=== PATIENT | male | born 1990 | race Caucasian/White ===

== ENCOUNTER 2024-06-04 09:00 | Outpatient (RCR) | payer OTHER, SELFPAY ==
--- NOTE | 2024-04-19 15:30 | PT.OIE ---
Current Diagnoses Stiffness of right shoulder, not elsewhere classified (04/19/24) Cervicalgia (04/19/24) Other specified acquired deformities of musculoskeletal system (04/19/24) Weakness (04/19/24) Visit Care Team Role Provider Type Prince Vignesh MD Family Provider Non-Staff Primary Care Provider Specialty: Family Practice Address: [address] [place] [address], [id number] Email: Ruel Fernandez MD Attending Provider Non-Staff Referring Provider Specialty: Psychiatry Address: [address] [place] [address], [address], [place], [address] Email: Physical Therapy Initial Evaluation PT-OP-A Visit Information Start: 04/19/24 07:29 Freq: Status: Active Protocol: Document 04/19/24 08:17 NM (Rec: 04/19/24 09:04 NM [id number]) Out-Patient Physical Therapy Visit Information Visit Information Visit Type Initial Evaluation Visit Start Time 08:18 Visit Stop Time 09:00 Visit Number 1 Evaluation Information Evaluation Date 04/19/24 PT-OP-B Current Condition Start: 04/19/24 07:29 Freq: Status: Active Protocol: Document 04/19/24 08:17 NM (Rec: 04/19/24 09:04 NM [id number]) Current Condition History of Current Condition Onset Date 1 year ago Current Complaints scapular winging History of Current Condition Pt reports that 1 year ago, he reports that numbness in R shoulder/scapula. He thinks that it occurred after sleeping weird, after multiple days of changing sleep position without success . About 1 month later, lost mobility in thumb; currently in PT for gripping/thumb stregth. Several months later, had same on L side; same 1 month later. Has seen neurologist at [facility] in [facility]. Four months ago, pt reports that he lost the ability to keep his scapula with forward reaching or overhead. No neck pain, no numbness. L sided is completely resolved. No clicking, popping of scapula. Reports uncomfortable, states with or without weights. Not affecting sleep. 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 still physically active - doing pilates, yoga, lower body (15#) Baseline Function- Recreation/Hobbies hiking, biking PT-OP-C Subjective Start: 04/19/24 07:29 Freq: Status: Active Protocol: Document 04/19/24 08:17 NM (Rec: 04/19/24 09:04 NM [id number]) OP-PT Subjective Patient Comments Patient Comments Pt consents to participate in evaluation Patient Questionnaires Quick Dash- Upper Extremity Quick Dash UE Score 22.7% impairment OP-PT Pain Assessment Location R scapula Pain Location Details scapula, under scapula Intensity 4 Scale Used Numeric (0 - 10) Description Aching Frequency Frequent Pain Aggravating Factors Activity,Exercise,Lifting Other Pain Aggravating Factors lifting, reaching, driving Pain Alleviating Factors None,Massage Other Pain Alleviating Factors pec mobilizations PT-OP-E Functional Tests Start: 04/19/24 07:29 Freq: Status: Active Protocol: Document 04/19/24 08:17 NM (Rec: 04/19/24 09:04 NM [id number]) Functional Tests Apley's Scratch Test Action 1- Left scap spine Action 1- Right AC J Action 2- Left T6 Action 2- Right occiput Action 3- Left T7 Action 3- Right T10 PT-OP-F Manual Assessment Start: 04/19/24 07:29 Freq: Status: Active Protocol: Document 04/19/24 08:17 NM (Rec: 04/19/24 09:04 NM [id number]) Manual Assessments Soft Tissue Assessment Soft Tissue Mobility Assessment Hypertrophy and elevation of R trap and cervical paraspinals . No atrophy noted at rotator cuff. Lat tightnes Joint Mobility Assessment Joint Mobility Assessment Quicker scapulohumeral rhythm R > L, limited thoracic mobility marnie R side, rib elevation marnie 1st rib. Limited posterior and inferior R GH joint mobility R scapula- 9 cm medial border to spine, 12 cm inf to spine L scapula - 8 cm medial border to spine, 9 cm inf to spine PT-OP-G Mobility & Gait Start: 04/19/24 07:29 Freq: Status: Active Protocol: Document 04/19/24 08:17 NM (Rec: 04/19/24 10:57 NM [id number]) OP Gait Assessment Gait Gait Assistance Required: Independent Distance (Feet) 150 Comments Gait Comments Limited trunk rotation PT-OP-H Neuro Start: 04/19/24 07:29 Freq: Status: Active Protocol: Document 04/19/24 08:17 NM (Rec: 04/19/24 10:57 NM [id number]) Sensation Evaluation Comments Summary Comments BUE equally intact to light touch sensation V1-V3 intact equally to light touch sensation Deep Tendon Reflex & Clonus Assessment Deep Tendon Reflex Right Achilles Deep Tendon Reflex 1+ Diminished Left Achilles Deep Tendon Reflex 2+ Normal Bilateral Patellar Deep Tendon Reflex 1+ Diminished Bilateral Brachioradialis Deep Tendon Reflex 1+ Diminished Bilateral Tricep Deep Tendon Reflex 1+ Diminished Bilateral Bicep Deep Tendon Reflex 1+ Diminished PT-OP-J Posture/Palpation/Skin Start: 04/19/24 07:29 Freq: Status: Active Protocol: Document 04/19/24 08:17 NM (Rec: 04/19/24 10:57 NM [id number]) Posture Evaluation Position Standing Head/C-Spine Posture C-Spine Flattened L-Spine Posture Increased Lordosis Shoulder Posture (L) Rounded,(R) Rounded Scapula Posture (L) Neutral,(R) Elevated,(R) Winged,(R) Tipped Arm Posture (L) Internally Rotated,(R) Internally Rotated Pelvis Posture Anteriorly Tilted Weight Distribution Balanced Hip Posture (R) Internally Rotated Palpation Assessment Location R shoulder Palpation Findings Soft Tissue Tightness, Tenderness Palpation Details Increased soft tissue restrictions on R cervical spine and periscapulars. R shoulder/scapula elevation, upper trap more prominent. Increaed tone No tenderness to palpation along R scapula, rotator cuff, trapezius Winging evident PT-OP-K Range of Motion Start: 04/19/24 07:29 Freq: Status: Active Protocol: Document 04/19/24 08:17 NM (Rec: 04/19/24 09:04 NM [id number]) Cervical Spine Range of Motion Cervical Spine Active Degrees Flexion 40 Extension 60 Rotation Left 75 Rotation Right 82 Lateral Flexion Left 45 Lateral Flexion Right 50 Comments Demos slight R tilt in neutral Shoulder Goniometric Range of Motion Shoulder Right Flexion 140 Abduction 150 External Rotation at 90 degrees 40 Abduction Comments 90 ER w comp at trunk Left Flexion 170 Abduction 180 External Rotation at 90 degrees 90 Abduction PT-OP-L Special Tests Start: 04/19/24 07:29 Freq: Status: Active Protocol: Document 04/19/24 08:17 NM (Rec: 04/19/24 09:04 NM [id number]) Special Tests Cervical Spine Special Tests Distraction Test Results - Spurling's Test Test Results - Shoulder Special Tests Lift off Test Results - Comments uncomfortable based on scapular angle Empty Can Test Results + Comments weakness but not pain IR > ER PT-OP-M Strength Start: 04/19/24 07:29 Freq: Status: Active Protocol: Document 04/19/24 08:17 NM (Rec: 04/19/24 09:04 NM [id number]) Scapula Strength Scapula Manual Muscle Testing Right Elevation (C4) 4- Good- Adduction 3+ Fair+ Abduction 3+ Fair+ Depression 3+ Fair+ Comments lower trap most limited Left Elevation (C4) 4 Good Adduction 4 Good Abduction 4 Good Depression 4 Good Shoulder Strength Shoulder Manual Muscle Testing Right Flexion 4- Good- Abduction (C5) 4 Good External Rotation 4- Good- Internal Rotation 4- Good- Left Flexion 4 Good Abduction (C5) 4 Good External Rotation 4 Good Internal Rotation 4 Good Elbow/Forearm Strength Elbow and Forearm Manual Muscle Testing Right Flexion (C6) 4- Good- Extension (C7) 4- Good- Pronation 4 Good Supination 4 Good Left Flexion (C6) 4 Good Extension (C7) 4 Good Pronation 4 Good Supination 4 Good Wrist Strength Wrist Manual Muscle Testing Right Flexion (C7) 4- Good- Extension (C6) 4- Good- Left Flexion (C7) 4 Good Extension (C6) 4 Good Hand Legal Support Analyst/Pinch Strength Hand Dominance Hand Dominance Left Hand Strength Right Legal Support Analyst (lbs) 100 Left Legal Support Analyst (lbs) 92 PT-OP-Q Treatments Start: 04/19/24 07:29 Freq: Status: Active Protocol: Document 04/19/24 08:17 NM (Rec: 04/19/24 10:57 NM [id number]) Therapeutic Exercises Standing Exercises wall slides Standing Exercise Name with scapular protraction Side bilateral Resistance level 2 band at forearms Reps/Minutes 5 Comments cued form; too many compensations, d/c for now scapular taps Standing Exercise Name with protraction; arms extended, plank position Side bilateral Equipment Used on wall Reps/Minutes 15 ea w/ 3 hold Comments cued form, set up; demos winging scapular push up Side bilateral Equipment Used on wall Reps/Minutes 15 w/ 3 hold Comments cued form; demmontana winging PT-OP-T Assessment and Plan Start: 04/19/24 07:29 Freq: Status: Active Protocol: Document 04/19/24 08:17 NM (Rec: 04/19/24 09:04 NM [id number]) Physical Therapy Assessment Rehab Potential Rehabilitation Potential Good Evaluation Complexity Number of Personal Factors/Comorbidities 0 Number of Body Systems Impaired 1-2 Clinical Presentation at Evaluation Stable Impairments Impairments Activity Tolerance,Functional Activities,Functional Mobility ,Gait,Integument,Pain,Posture, ROM,Sensation,Soft Tissue Mobility,Strength,Transfers Other Concerns Age Related Concerns PMH: no significant PMH except provided in subjective ( referring physician's note: AIN, neuritis). 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 Goals Four Impairment quickdash 22.7% impairment Restaurant Kitchen And Service Manager Goal (LTG) Pt will decrease quickdash to <15% impairment in order to demonstrate improved symptom management LTG Duration 12 weeks Three Impairment limitations in scapular, shoulder strength Short Term Goal (STG) Pt will improve R scapular strength to at least 4-/5 MMT globally for more efficient scapular position STG Duration 8 weeks Shelter Goal (LTG) Pt will improve R scapular and shoulder strength to at least 4/5 MMT globally for more efficient lifting mechanics LTG Duration 12 weeks Two Impairment R shoulder ROM limited Shelter Goal (LTG) Pt will increase R shoulder flexion ROM to at least 160 deg and apley ER to at least C3 in order to improve ability to reach and perform grooming ADLs LTG Duration 12 weeks One Impairment not performing HEP Restaurant Kitchen And Service Manager Goal (LTG) Pt will be IND with HEP at least 3x/wk in order to maximize progression with PT and for maintenance upon discharge from PT LTG Duration 12 weeks Assessment Summary Assessment Pt is a 34 y.o. presenting with R scapular winging beginning 4 months ago. Pt has had significant changes in sensation and strength in BUE proximally to distally, beginning over the past year with changes every few months; he has been assessed by a neurologist with dx still ongoing. Pt demonstrates decreased thoracic mobility, R scapular movement, and R shoulder ROM; mild limitations in cervical spine AROM, likely more soft tissue related. Pt exhibits hypertrophy of R cervical paraspinals and periscapulars, atrophy of serratus anterior. Pt also demonstrates weakness in BUE, R>L, especially with shoulder flex, ER/IR, and elbow. His light touch sensation is intact, reflexes are diminished. PT educated pt on exam findings and plan of care. Pt would benefit from skilled PT for R scapular mobility and strengthening in order for pt to be able to perform reaching and lifting ADLs, in addition to work- related tasks. Physical Therapy Plan Frequency and Duration Frequency of Treatment 1-2x/wk Duration of treatment (weeks) 12 Plan of Care Start Date 04/19/24 Plan of Care End Date 07/13/24 Therapeutic Interventions Therapeutic Interventions Gait Training,Home Exercise Program,Joint Mobilizations, Manual Therapy,Neuromuscular Re-education,Orthotic/ Prosthetic Management,Patient/ Caregiver Education,Self-Care/ Home Management,Sensory Integration,Soft Tissue Mobilization,Taping, Therapeutic Activities, Therapeutic Exercises Modalities Cold Pack/Ice Massage,Electric Stimulation,Hot Packs, Ultrasound Next Visit Focus/Plan Next Note Type Treatment Note Next Visit Plan scapular mobility RTC strengthening- closed chain, scapular strength, thoracic mobility scapular mobilizations, GHJ and rib mobilizations, STM
--- NOTE | 2024-04-19 15:30 | PT.OPPOC ---
Physical, Occupational & Speech Therapy At [facility] Current Diagnoses Stiffness of right shoulder, not elsewhere classified (04/19/24) Cervicalgia (04/19/24) Other specified acquired deformities of musculoskeletal system (04/19/24) Weakness (04/19/24) Visit Care Team Role Provider Type Prince Vignesh MD Family Provider Non-Staff Primary Care Provider Specialty: Family Practice Address: [address] [place] [address], [id number] Email: Ruel Fernandez MD Attending Provider Non-Staff Referring Provider Specialty: Psychiatry Address: [address] [place] [address], [address], [place], [address] Email: Plan Of Care PT-OP-B Current Condition Start: 04/19/24 07:29 Freq: Status: Active Protocol: Document 04/19/24 08:17 NM (Rec: 04/19/24 09:04 NM [id number]) Current Condition History of Current Condition Onset Date 1 year ago Current Complaints scapular winging History of Current Condition Pt reports that 1 year ago, he reports that numbness in R shoulder/scapula. He thinks that it occurred after sleeping weird, after multiple days of changing sleep position without success . About 1 month later, lost mobility in thumb; currently in PT for gripping/thumb stregth. Several months later, had same on L side; same 1 month later. Has seen neurologist at [facility] in [facility]. Four months ago, pt reports that he lost the ability to keep his scapula with forward reaching or overhead. No neck pain, no numbness. L sided is completely resolved. No clicking, popping of scapula. Reports uncomfortable, states with or without weights. Not affecting sleep. 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 still physically active - doing pilates, yoga, lower body (15#) Baseline Function- Recreation/Hobbies hiking, biking PT-OP-T Assessment and Plan Start: 04/19/24 07:29 Freq: Status: Active Protocol: Document 04/19/24 08:17 NM (Rec: 04/19/24 09:04 NM [id number]) Physical Therapy Assessment Rehab Potential Rehabilitation Potential Good Evaluation Complexity Number of Personal Factors/Comorbidities 0 Number of Body Systems Impaired 1-2 Clinical Presentation at Evaluation Stable Impairments Impairments Activity Tolerance,Functional Activities,Functional Mobility ,Gait,Integument,Pain,Posture, ROM,Sensation,Soft Tissue Mobility,Strength,Transfers Other Concerns Age Related Concerns PMH: no significant PMH except provided in subjective ( referring physician's note: AIN, neuritis). 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 Goals Four Impairment quickdash 22.7% impairment Clerk Rating Goal (LTG) Pt will decrease quickdash to <15% impairment in order to demonstrate improved symptom management LTG Duration 12 weeks Three Impairment limitations in scapular, shoulder strength Short Term Goal (STG) Pt will improve R scapular strength to at least 4-/5 MMT globally for more efficient scapular position STG Duration 8 weeks Clerk Rating Goal (LTG) Pt will improve R scapular and shoulder strength to at least 4/5 MMT globally for more efficient lifting mechanics LTG Duration 12 weeks Two Impairment R shoulder ROM limited Residential Goal (LTG) Pt will increase R shoulder flexion ROM to at least 160 deg and apley ER to at least C3 in order to improve ability to reach and perform grooming ADLs LTG Duration 12 weeks One Impairment not performing HEP Clerk Rating Goal (LTG) Pt will be IND with HEP at least 3x/wk in order to maximize progression with PT and for maintenance upon discharge from PT LTG Duration 12 weeks Assessment Summary Assessment Pt is a 34 y.o. presenting with R scapular winging beginning 4 months ago. Pt has had significant changes in sensation and strength in BUE proximally to distally, beginning over the past year with changes every few months; he has been assessed by a neurologist with dx still ongoing. Pt demonstrates decreased thoracic mobility, R scapular movement, and R shoulder ROM; mild limitations in cervical spine AROM, likely more soft tissue related. Pt exhibits hypertrophy of R cervical paraspinals and periscapulars, atrophy of serratus anterior. Pt also demonstrates weakness in BUE, R>L, especially with shoulder flex, ER/IR, and elbow. His light touch sensation is intact, reflexes are diminished. PT educated pt on exam findings and plan of care. Pt would benefit from skilled PT for R scapular mobility and strengthening in order for pt to be able to perform reaching and lifting ADLs, in addition to work- related tasks. Physical Therapy Plan Frequency and Duration Frequency of Treatment 1-2x/wk Duration of treatment (weeks) 12 Plan of Care Start Date 04/19/24 Plan of Care End Date 07/13/24 Therapeutic Interventions Therapeutic Interventions Gait Training,Home Exercise Program,Joint Mobilizations, Manual Therapy,Neuromuscular Re-education,Orthotic/ Prosthetic Management,Patient/ Caregiver Education,Self-Care/ Home Management,Sensory Integration,Soft Tissue Mobilization,Taping, Therapeutic Activities, Therapeutic Exercises Modalities Cold Pack/Ice Massage,Electric Stimulation,Hot Packs, Ultrasound Next Visit Focus/Plan Next Note Type Treatment Note Next Visit Plan scapular mobility RTC strengthening- closed chain, scapular strength, thoracic mobility scapular mobilizations, GHJ and rib mobilizations, STM Plan of Care Dates Plan of Care Start Date 04/19/24 Plan of Care End Date 07/13/24 Electronically Signed by: Mary Jo Caban, PT 04/19/24 [id number] If you are in agreement with this Plan of Care, please return a signed and dated copy. I have reviewed this Plan of Care and certify that the skilled therapy services above are required to meet the patient?s needs. Physician Signature Date Printed Name and Credentials Clinical Instructor Signature Printed Name and Credentials
--- NOTE | 2024-04-19 15:32 | PT-OP ANOTE ---
PT called and left message for pt to bring OT hand therapy schedule when attends next PT appt as pt cannot attend both PT and OT on same days due to insurance policies. Reminded pt of upcoming appt on 04/23
--- NOTE | 2024-04-23 10:01 | PT-OP ANOTE ---
NO SHOW- PT called and left pt a voicemail at [phone] as pt confirmed appt but did not show up for scheduled appt on 04/23 at 0945. PT reminded pt of attendance policy, informing pt that he will be discharged if he has a 2nd no show. PT also reminded pt of upcoming appt on 04/26 with [facility] at 1430.
--- NOTE | 2024-04-26 17:12 | PT.OTN ---
Current Diagnoses Stiffness of right shoulder, not elsewhere classified (04/26/24) Cervicalgia (04/26/24) Other specified acquired deformities of musculoskeletal system (04/26/24) Weakness (04/26/24) Physical Therapy Treatment Note PT-OP-A Visit Information Start: 04/19/24 07:29 Freq: Status: Active Protocol: Document 04/26/24 14:38 SW (Rec: 04/26/24 15:21 SW [id number]) Out-Patient Physical Therapy Visit Information Visit Information Visit Type Treatment Note Visit Start Time 14:35 Visit Stop Time 15:13 Visit Number 2 Number of ASSOCIATE PROFESSOR COMPUTER SCIENCE Visits 1 PT-OP-B Current Condition Start: 04/19/24 07:29 Freq: Status: Active Protocol: Document 04/19/24 08:17 NM (Rec: 04/19/24 09:04 NM [id number]) Current Condition History of Current Condition Onset Date 1 year ago Current Complaints scapular winging History of Current Condition Pt reports that 1 year ago, he reports that numbness in R shoulder/scapula. He thinks that it occurred after sleeping weird, after multiple days of changing sleep position without success . About 1 month later, lost mobility in thumb; currently in PT for gripping/thumb stregth. Several months later, had same on L side; same 1 month later. Has seen neurologist at [facility] in [facility]. Four months ago, pt reports that he lost the ability to keep his scapula with forward reaching or overhead. No neck pain, no numbness. L sided is completely resolved. No clicking, popping of scapula. Reports uncomfortable, states with or without weights. Not affecting sleep. 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 PT-OP-E Functional Tests Start: 04/19/24 07:29 Freq: Status: Active Protocol: Document 04/19/24 08:17 NM (Rec: 04/19/24 09:04 NM [id number]) Functional Tests Apley's Scratch Test Action 1- Left scap spine Action 1- Right AC J Action 2- Left T6 Action 2- Right occiput Action 3- Left T7 Action 3- Right T10 PT-OP-F Manual Assessment Start: 04/19/24 07:29 Freq: Status: Active Protocol: Document 04/19/24 08:17 NM (Rec: 04/19/24 09:04 NM [id number]) Manual Assessments Soft Tissue Assessment Soft Tissue Mobility Assessment Hypertrophy and elevation of R trap and cervical paraspinals . No atrophy noted at rotator cuff. Lat tightnes Joint Mobility Assessment Joint Mobility Assessment Quicker scapulohumeral rhythm R > L, limited thoracic mobility marnie R side, rib elevation marnie 1st rib. Limited posterior and inferior R GH joint mobility R scapula- 9 cm medial border to spine, 12 cm inf to spine L scapula - 8 cm medial border to spine, 9 cm inf to spine PT-OP-G Mobility & Gait Start: 04/19/24 07:29 Freq: Status: Active Protocol: Document 04/19/24 08:17 NM (Rec: 04/19/24 10:57 NM [id number]) OP Gait Assessment Gait Gait Assistance Required: Independent Distance (Feet) 150 Comments Gait Comments Limited trunk rotation PT-OP-H Neuro Start: 04/19/24 07:29 Freq: Status: Active Protocol: Document 04/19/24 08:17 NM (Rec: 04/19/24 10:57 NM [id number]) Sensation Evaluation Comments Summary Comments BUE equally intact to light touch sensation V1-V3 intact equally to light touch sensation Deep Tendon Reflex & Clonus Assessment Deep Tendon Reflex Right Achilles Deep Tendon Reflex 1+ Diminished Left Achilles Deep Tendon Reflex 2+ Normal Bilateral Patellar Deep Tendon Reflex 1+ Diminished Bilateral Brachioradialis Deep Tendon Reflex 1+ Diminished Bilateral Tricep Deep Tendon Reflex 1+ Diminished Bilateral Bicep Deep Tendon Reflex 1+ Diminished PT-OP-J Posture/Palpation/Skin Start: 04/19/24 07:29 Freq: Status: Active Protocol: Document 04/19/24 08:17 NM (Rec: 04/19/24 10:57 NM [id number]) Posture Evaluation Position Standing Head/C-Spine Posture C-Spine Flattened L-Spine Posture Increased Lordosis Shoulder Posture (L) Rounded,(R) Rounded Scapula Posture (L) Neutral,(R) Elevated,(R) Winged,(R) Tipped Arm Posture (L) Internally Rotated,(R) Internally Rotated Pelvis Posture Anteriorly Tilted Weight Distribution Balanced Hip Posture (R) Internally Rotated Palpation Assessment Location R shoulder Palpation Findings Soft Tissue Tightness, Tenderness Palpation Details Increased soft tissue restrictions on R cervical spine and periscapulars. R shoulder/scapula elevation, upper trap more prominent. Increaed tone No tenderness to palpation along R scapula, rotator cuff, trapezius Winging evident PT-OP-K Range of Motion Start: 04/19/24 07:29 Freq: Status: Active Protocol: Document 04/19/24 08:17 NM (Rec: 04/19/24 09:04 NM [id number]) Cervical Spine Range of Motion Cervical Spine Active Degrees Flexion 40 Extension 60 Rotation Left 75 Rotation Right 82 Lateral Flexion Left 45 Lateral Flexion Right 50 Comments Demos slight R tilt in neutral Shoulder Goniometric Range of Motion Shoulder Right Flexion 140 Abduction 150 External Rotation at 90 degrees 40 Abduction Comments 90 ER w comp at trunk Left Flexion 170 Abduction 180 External Rotation at 90 degrees 90 Abduction PT-OP-L Special Tests Start: 04/19/24 07:29 Freq: Status: Active Protocol: Document 04/19/24 08:17 NM (Rec: 04/19/24 09:04 NM [id number]) Special Tests Cervical Spine Special Tests Distraction Test Results - Spurling's Test Test Results - Shoulder Special Tests Lift off Test Results - Comments uncomfortable based on scapular angle Empty Can Test Results + Comments weakness but not pain IR > ER PT-OP-M Strength Start: 04/19/24 07:29 Freq: Status: Active Protocol: Document 04/19/24 08:17 NM (Rec: 04/19/24 09:04 NM [id number]) Scapula Strength Scapula Manual Muscle Testing Right Elevation (C4) 4- Good- Adduction 3+ Fair+ Abduction 3+ Fair+ Depression 3+ Fair+ Comments lower trap most limited Left Elevation (C4) 4 Good Adduction 4 Good Abduction 4 Good Depression 4 Good Shoulder Strength Shoulder Manual Muscle Testing Right Flexion 4- Good- Abduction (C5) 4 Good External Rotation 4- Good- Internal Rotation 4- Good- Left Flexion 4 Good Abduction (C5) 4 Good External Rotation 4 Good Internal Rotation 4 Good Elbow/Forearm Strength Elbow and Forearm Manual Muscle Testing Right Flexion (C6) 4- Good- Extension (C7) 4- Good- Pronation 4 Good Supination 4 Good Left Flexion (C6) 4 Good Extension (C7) 4 Good Pronation 4 Good Supination 4 Good Wrist Strength Wrist Manual Muscle Testing Right Flexion (C7) 4- Good- Extension (C6) 4- Good- Left Flexion (C7) 4 Good Extension (C6) 4 Good Hand Marketing Administrative Assistant/Pinch Strength Hand Dominance Hand Dominance Left Hand Strength Right Marketing Administrative Assistant (lbs) 100 Left Marketing Administrative Assistant (lbs) 92 PT-OP-Q Treatments Start: 04/19/24 07:29 Freq: Status: Active Protocol: Document 04/26/24 14:38 SW (Rec: 04/26/24 15:21 SW [id number]) Therapeutic Exercises Standing Exercises Scapular Retraction Standing Exercise Name Scapular retraction (issued HEP HO) Side bilateral Resistance AROM Reps/Minutes x10 Comments verbal/tactile cues to facilitate movement Scapular stabilization Standing Exercise Name Trialed- ball on wall for scapular stabilization Side right Resistance yellow weighted ball Comments Plan to revisit next session as able (CW/CCW/up,dwn/med,lat ) Wall angels Standing Exercise Name w/manual facilitation for scapular movement wall slides Standing Exercise Name with scapular protraction Side bilateral Resistance Trialed with no band today Reps/Minutes 5 Comments cued form; too many compensations, d/c for now scapular taps Standing Exercise Name with protraction; arms extended, plank position Side bilateral Equipment Used on wall Reps/Minutes 15 ea w/ 3 hold Comments cued form, set up; demos winging scapular push up Side bilateral Equipment Used on wall Reps/Minutes 15 w/ 3 hold Comments cued form; demos winging Manual Therapy Treatment Consent Patient gave verbal consent for manual Yes treatment Soft Tissue Mobilization R shoulder Body Location R shoulder, periscapular musculature Mobilization Type Myofascial Release,Rolling, Sustained Pressure,Trigger Point Release Intensity/Depth Moderate Body Position R sidelying Comments Multiple trigger point/tension palpated along medial border of scapula, instructed pt in self STM with tennis ball Joint Mobilizations GH Joint glenohumeral joint mobs Direction Inferior/AP Grade III Body Position Supine Reps/Duration x5 ea Scapular Joint Scapular mobilizations Direction medial, inferior, superior Grade III Body Position Sidelying Comments medial tilt, joint mobs to facilitate scapulothoracic mobility PT-OP-T Assessment and Plan Start: 04/19/24 07:29 Freq: Status: Active Protocol: Document 04/26/24 14:38 (Rec: 04/26/24 16:53 [id number]) Physical Therapy Assessment Goals Four Impairment quickdash 22.7% impairment Kelly Machine Operator Goal (LTG) Pt will decrease quickdash to <15% impairment in order to demonstrate improved symptom management LTG Duration 12 weeks Three Impairment limitations in scapular, shoulder strength Short Term Goal (STG) Pt will improve R scapular strength to at least 4-/5 MMT globally for more efficient scapular position STG Duration 8 weeks Long-Term Goal (LTG) Pt will improve R scapular and shoulder strength to at least 4/5 MMT globally for more efficient lifting mechanics LTG Duration 12 weeks Two Impairment R shoulder ROM limited Kelly Machine Operator Goal (LTG) Pt will increase R shoulder flexion ROM to at least 160 deg and apley ER to at least C3 in order to improve ability to reach and perform grooming ADLs LTG Duration 12 weeks One Impairment not performing HEP Long-Term Goal (LTG) Pt will be IND with HEP at least 3x/wk in order to maximize progression with PT and for maintenance upon discharge from PT 04/26/24: scapular retraction LTG Duration 12 weeks Assessment Summary Assessment Started session with manual work, STM to R periscapular musculature, multiple trigger points palpable along medial scapular border, instructed pt in self STM with tennis ball this session, restrictions not resolved this session, may benefit from continued focus. Initiated scapular/GH joint mobs this session to increase mobility. Pt demonstrated prominent scapular winging throughout exercises this session, pt may benefit from continued focus on scapular stabilization. Initiated wall angels with manual facilitation of scapular movement. Physical Therapy Plan Frequency and Duration Frequency of Treatment 1-2x/wk Duration of treatment (weeks) 12 Plan of Care Start Date 04/19/24 Plan of Care End Date 07/13/24 Therapeutic Interventions Therapeutic Interventions Gait Training,Home Exercise Program,Joint Mobilizations, Manual Therapy,Neuromuscular Re-education,Orthotic/ Prosthetic Management,Patient/ Caregiver Education,Self-Care/ Home Management,Sensory Integration,Soft Tissue Mobilization,Taping, Therapeutic Activities, Therapeutic Exercises Modalities Cold Pack/Ice Massage,Electric Stimulation,Hot Packs, Ultrasound Next Visit Focus/Plan Next Note Type Treatment Note Next Visit Plan Next: IYT on Tball, Supine Scapular Protraction, RC strength, Periscapular strength, continue per PT POC below POC: RTC strengthening- closed chain, scapular strength, thoracic mobility scapular mobilizations, GHJ and rib mobilizations, STM
--- NOTE | 2024-05-01 12:57 | PT.OTN ---
Current Diagnoses Stiffness of right shoulder, not elsewhere classified (05/01/24) Cervicalgia (05/01/24) Other specified acquired deformities of musculoskeletal system (05/01/24) Weakness (05/01/24) Physical Therapy Treatment Note PT-OP-A Visit Information Start: 04/19/24 07:29 Freq: Status: Active Protocol: Document 05/01/24 08:54 AB (Rec: 05/01/24 12:56 AB [id number]) Out-Patient Physical Therapy Visit Information Visit Information Visit Type Treatment Note Visit Note Access Code [email or web address] Visit Start Time 10:48 Visit Stop Time 11:32 Visit Number 3 Number of REVIEW NURSE Visits 2 Evaluation Information Evaluation Date 04/19/24 PT-OP-B Current Condition Start: 04/19/24 07:29 Freq: Status: Active Protocol: Document 04/19/24 08:17 NM (Rec: 04/19/24 09:04 NM [id number]) Current Condition History of Current Condition Onset Date 1 year ago Current Complaints scapular winging History of Current Condition Pt reports that 1 year ago, he reports that numbness in R shoulder/scapula. He thinks that it occurred after sleeping weird, after multiple days of changing sleep position without success . About 1 month later, lost mobility in thumb; currently in PT for gripping/thumb stregth. Several months later, had same on L side; same 1 month later. Has seen neurologist at [facility] in [facility]. Four months ago, pt reports that he lost the ability to keep his scapula with forward reaching or overhead. No neck pain, no numbness. L sided is completely resolved. No clicking, popping of scapula. Reports uncomfortable, states with or without weights. Not affecting sleep. 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 Patient reports performing HEP once a day, but not as much over the past week. Right shoulder flexion 141 deg start of session. ( Subjective pat seated with pillows under UE's vc for breathing from diaphragm. PT-OP-E Functional Tests Start: 04/19/24 07:29 Freq: Status: Active Protocol: Document 04/19/24 08:17 NM (Rec: 04/19/24 09:04 NM [id number]) Functional Tests Apley's Scratch Test Action 1- Left scap spine Action 1- Right AC J Action 2- Left T6 Action 2- Right occiput Action 3- Left T7 Action 3- Right T10 PT-OP-F Manual Assessment Start: 04/19/24 07:29 Freq: Status: Active Protocol: Document 04/19/24 08:17 NM (Rec: 04/19/24 09:04 NM [id number]) Manual Assessments Soft Tissue Assessment Soft Tissue Mobility Assessment Hypertrophy and elevation of R trap and cervical paraspinals . No atrophy noted at rotator cuff. Lat tightnes Joint Mobility Assessment Joint Mobility Assessment Quicker scapulohumeral rhythm R > L, limited thoracic mobility marnie R side, rib elevation marnie 1st rib. Limited posterior and inferior R GH joint mobility R scapula- 9 cm medial border to spine, 12 cm inf to spine L scapula - 8 cm medial border to spine, 9 cm inf to spine PT-OP-G Mobility & Gait Start: 04/19/24 07:29 Freq: Status: Active Protocol: Document 04/19/24 08:17 NM (Rec: 04/19/24 10:57 NM [id number]) OP Gait Assessment Gait Gait Assistance Required: Independent Distance (Feet) 150 Comments Gait Comments Limited trunk rotation PT-OP-H Neuro Start: 04/19/24 07:29 Freq: Status: Active Protocol: Document 04/19/24 08:17 NM (Rec: 04/19/24 10:57 NM [id number]) Sensation Evaluation Comments Summary Comments BUE equally intact to light touch sensation V1-V3 intact equally to light touch sensation Deep Tendon Reflex & Clonus Assessment Deep Tendon Reflex Right Achilles Deep Tendon Reflex 1+ Diminished Left Achilles Deep Tendon Reflex 2+ Normal Bilateral Patellar Deep Tendon Reflex 1+ Diminished Bilateral Brachioradialis Deep Tendon Reflex 1+ Diminished Bilateral Tricep Deep Tendon Reflex 1+ Diminished Bilateral Bicep Deep Tendon Reflex 1+ Diminished PT-OP-J Posture/Palpation/Skin Start: 04/19/24 07:29 Freq: Status: Active Protocol: Document 04/19/24 08:17 NM (Rec: 04/19/24 10:57 NM [id number]) Posture Evaluation Position Standing Head/C-Spine Posture C-Spine Flattened L-Spine Posture Increased Lordosis Shoulder Posture (L) Rounded,(R) Rounded Scapula Posture (L) Neutral,(R) Elevated,(R) Winged,(R) Tipped Arm Posture (L) Internally Rotated,(R) Internally Rotated Pelvis Posture Anteriorly Tilted Weight Distribution Balanced Hip Posture (R) Internally Rotated Palpation Assessment Location R shoulder Palpation Findings Soft Tissue Tightness, Tenderness Palpation Details Increased soft tissue restrictions on R cervical spine and periscapulars. R shoulder/scapula elevation, upper trap more prominent. Increaed tone No tenderness to palpation along R scapula, rotator cuff, trapezius Winging evident PT-OP-K Range of Motion Start: 04/19/24 07:29 Freq: Status: Active Protocol: Document 04/19/24 08:17 NM (Rec: 04/19/24 09:04 NM [id number]) Cervical Spine Range of Motion Cervical Spine Active Degrees Flexion 40 Extension 60 Rotation Left 75 Rotation Right 82 Lateral Flexion Left 45 Lateral Flexion Right 50 Comments Demos slight R tilt in neutral Shoulder Goniometric Range of Motion Shoulder Right Flexion 140 Abduction 150 External Rotation at 90 degrees 40 Abduction Comments 90 ER w comp at trunk Left Flexion 170 Abduction 180 External Rotation at 90 degrees 90 Abduction PT-OP-L Special Tests Start: 04/19/24 07:29 Freq: Status: Active Protocol: Document 04/19/24 08:17 NM (Rec: 04/19/24 09:04 NM [id number]) Special Tests Cervical Spine Special Tests Distraction Test Results - Spurling's Test Test Results - Shoulder Special Tests Lift off Test Results - Comments uncomfortable based on scapular angle Empty Can Test Results + Comments weakness but not pain IR > ER PT-OP-M Strength Start: 04/19/24 07:29 Freq: Status: Active Protocol: Document 04/19/24 08:17 NM (Rec: 04/19/24 09:04 NM [id number]) Scapula Strength Scapula Manual Muscle Testing Right Elevation (C4) 4- Good- Adduction 3+ Fair+ Abduction 3+ Fair+ Depression 3+ Fair+ Comments lower trap most limited Left Elevation (C4) 4 Good Adduction 4 Good Abduction 4 Good Depression 4 Good Shoulder Strength Shoulder Manual Muscle Testing Right Flexion 4- Good- Abduction (C5) 4 Good External Rotation 4- Good- Internal Rotation 4- Good- Left Flexion 4 Good Abduction (C5) 4 Good External Rotation 4 Good Internal Rotation 4 Good Elbow/Forearm Strength Elbow and Forearm Manual Muscle Testing Right Flexion (C6) 4- Good- Extension (C7) 4- Good- Pronation 4 Good Supination 4 Good Left Flexion (C6) 4 Good Extension (C7) 4 Good Pronation 4 Good Supination 4 Good Wrist Strength Wrist Manual Muscle Testing Right Flexion (C7) 4- Good- Extension (C6) 4- Good- Left Flexion (C7) 4 Good Extension (C6) 4 Good Hand Athletic Monitor/Pinch Strength Hand Dominance Hand Dominance Left Hand Strength Right Athletic Monitor (lbs) 100 Left Athletic Monitor (lbs) 92 PT-OP-Q Treatments Start: 04/19/24 07:29 Freq: Status: Active Protocol: Document 05/01/24 08:54 AB (Rec: 05/01/24 12:56 AB [id number]) Therapeutic Exercises Supine Exercises mini band Supine Exercise Name Verbal cues Side bilateral Resistance level one Reps/Minutes X1 Comments reports pinching end ROM flexion right UE foam roller Supine Exercise Name 1. pec stretch 2. alternating UE flexion Side bilateral Equipment Used HEP Reps/Minutes 1. 2 min 2. X 10 Comments Verbal cues for positioning, direct of mvt and breathing from diaphragm serratus punch Supine Exercise Name HEP Side bilateral Resistance 1 lb Reps/Minutes X10 w/o weight X 10 with 1 lb Comments verbal cues Standing Exercises Scapular stabilization Standing Exercise Name Trialed- ball on wall for scapular stabilization Side bilateral Reps/Minutes X10 each direction Comments bilateral heavier yellow ball left UE Manual Therapy Treatment Consent Patient gave verbal consent for manual Yes treatment Soft Tissue Mobilization R shoulder Body Location R shoulder, pec periscapular musculature Mobilization Type Myofascial Release,Rolling, Sustained Pressure Intensity/Depth Moderate Body Position Hooklying Comments and sidelying Joint Mobilizations GH Joint glenohumeral joint mobs Direction Inferior/AP Grade IV Body Position Hooklying Reps/Duration X10 X 3 Scapular Joint Scapular mobilizations Direction into add and depression Grade III Body Position Sidelying Reps/Duration X10 each PT-OP-T Assessment and Plan Start: 04/19/24 07:29 Freq: Status: Active Protocol: Document 05/01/24 08:54 AB (Rec: 05/01/24 12:56 AB [id number]) Physical Therapy Assessment Goals Four Impairment quickdash 22.7% impairment Property Loss Insurance Claim Adjuster Goal (LTG) Pt will decrease quickdash to <15% impairment in order to demonstrate improved symptom management LTG Duration 12 weeks Three Impairment limitations in scapular, shoulder strength Short Term Goal (STG) Pt will improve R scapular strength to at least 4-/5 MMT globally for more efficient scapular position STG Duration 8 weeks Property Loss Insurance Claim Adjuster Goal (LTG) Pt will improve R scapular and shoulder strength to at least 4/5 MMT globally for more efficient lifting mechanics LTG Duration 12 weeks Two Impairment R shoulder ROM limited Property Loss Insurance Claim Adjuster Goal (LTG) Pt will increase R shoulder flexion ROM to at least 160 deg and apley ER to at least C3 in order to improve ability to reach and perform grooming ADLs 05/01/2024 AROM right shoulder flexion 150 deg end of session LTG Duration 12 weeks One Impairment not performing HEP Residential Goal (LTG) Pt will be IND with HEP at least 3x/wk in order to maximize progression with PT and for maintenance upon discharge from PT 04/26/24: scapular retraction 05/01/2024 pec stretch and alt UE flex on foam roller, and serratus punch in hooklying to HEP LTG Duration 12 weeks Assessment Summary Assessment AROM right shoulder flexion 150 end of session. Winging with scapular protraction with ball persists, but is less when performed bilaterally at the same time. Physical Therapy Plan Frequency and Duration Frequency of Treatment 1-2x/wk Duration of treatment (weeks) 12 Plan of Care Start Date 04/19/24 Plan of Care End Date 07/13/24 Next Visit Focus/Plan Next Note Type Treatment Note Next Visit Plan Next: IYT on Tball, Supine RC strength, Periscapular strength, continue per PT POC below POC: RTC strengthening- closed chain, scapular strength, thoracic mobility scapular mobilizations, GHJ and rib mobilizations, STM
--- NOTE | 2024-05-04 11:34 | PT.OTN ---
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 He thinks that it occurred after sleeping weird, after multiple days of changing sleep position without success . About 1 month later, lost mobility in thumb; currently in PT for gripping/thumb stregth. Several months later, had same on L side; same 1 month later. Has seen neurologist at [facility] in [facility]. Four months ago, pt reports that he lost the ability to keep his scapula with forward reaching or overhead. No neck pain, no numbness. L sided is completely resolved. No clicking, popping of scapula. Reports uncomfortable, states with or without weights. Not affecting sleep. 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 Reports still consistent symptoms, winging; denies pain. Will be going back to work in June so will likely be unable to continue past May PT-OP-E Functional Tests Start: 04/19/24 07:29 Freq: Status: Active Protocol: Document 04/19/24 08:17 NM (Rec: 04/19/24 09:04 NM [id number]) Functional Tests Apley's Scratch Test Action 1- Left scap spine Action 1- Right AC J Action 2- Left T6 Action 2- Right occiput Action 3- Left T7 Action 3- Right T10 PT-OP-F Manual Assessment Start: 04/19/24 07:29 Freq: Status: Active Protocol: Document 04/19/24 08:17 NM (Rec: 04/19/24 09:04 NM [id number]) Manual Assessments Soft Tissue Assessment Soft Tissue Mobility Assessment Hypertrophy and elevation of R trap and cervical paraspinals . No atrophy noted at rotator cuff. Lat tightnes Joint Mobility Assessment Joint Mobility Assessment Quicker scapulohumeral rhythm R > L, limited thoracic mobility marnie R side, rib elevation marnie 1st rib. Limited posterior and inferior R GH joint mobility R scapula- 9 cm medial border to spine, 12 cm inf to spine L scapula - 8 cm medial border to spine, 9 cm inf to spine PT-OP-G Mobility & Gait Start: 04/19/24 07:29 Freq: Status: Active Protocol: Document 04/19/24 08:17 NM (Rec: 04/19/24 10:57 NM [id number]) OP Gait Assessment Gait Gait Assistance Required: Independent Distance (Feet) 150 Comments Gait Comments Limited trunk rotation PT-OP-H Neuro Start: 04/19/24 07:29 Freq: Status: Active Protocol: Document 04/19/24 08:17 NM (Rec: 04/19/24 10:57 NM [id number]) Sensation Evaluation Comments Summary Comments BUE equally intact to light touch sensation V1-V3 intact equally to light touch sensation Deep Tendon Reflex & Clonus Assessment Deep Tendon Reflex Right Achilles Deep Tendon Reflex 1+ Diminished Left Achilles Deep Tendon Reflex 2+ Normal Bilateral Patellar Deep Tendon Reflex 1+ Diminished Bilateral Brachioradialis Deep Tendon Reflex 1+ Diminished Bilateral Tricep Deep Tendon Reflex 1+ Diminished Bilateral Bicep Deep Tendon Reflex 1+ Diminished PT-OP-J Posture/Palpation/Skin Start: 04/19/24 07:29 Freq: Status: Active Protocol: Document 04/19/24 08:17 NM (Rec: 04/19/24 10:57 NM [id number]) Posture Evaluation Position Standing Head/C-Spine Posture C-Spine Flattened L-Spine Posture Increased Lordosis Shoulder Posture (L) Rounded,(R) Rounded Scapula Posture (L) Neutral,(R) Elevated,(R) Winged,(R) Tipped Arm Posture (L) Internally Rotated,(R) Internally Rotated Pelvis Posture Anteriorly Tilted Weight Distribution Balanced Hip Posture (R) Internally Rotated Palpation Assessment Location R shoulder Palpation Findings Soft Tissue Tightness, Tenderness Palpation Details Increased soft tissue restrictions on R cervical spine and periscapulars. R shoulder/scapula elevation, upper trap more prominent. Increaed tone No tenderness to palpation along R scapula, rotator cuff, trapezius Winging evident PT-OP-K Range of Motion Start: 04/19/24 07:29 Freq: Status: Active Protocol: Document 04/19/24 08:17 NM (Rec: 04/19/24 09:04 NM [id number]) Cervical Spine Range of Motion Cervical Spine Active Degrees Flexion 40 Extension 60 Rotation Left 75 Rotation Right 82 Lateral Flexion Left 45 Lateral Flexion Right 50 Comments Demos slight R tilt in neutral Shoulder Goniometric Range of Motion Shoulder Right Flexion 140 Abduction 150 External Rotation at 90 degrees 40 Abduction Comments 90 ER w comp at trunk Left Flexion 170 Abduction 180 External Rotation at 90 degrees 90 Abduction PT-OP-L Special Tests Start: 04/19/24 07:29 Freq: Status: Active Protocol: Document 04/19/24 08:17 NM (Rec: 04/19/24 09:04 NM [id number]) Special Tests Cervical Spine Special Tests Distraction Test Results - Spurling's Test Test Results - Shoulder Special Tests Lift off Test Results - Comments uncomfortable based on scapular angle Empty Can Test Results + Comments weakness but not pain IR > ER PT-OP-M Strength Start: 04/19/24 07:29 Freq: Status: Active Protocol: Document 04/19/24 08:17 NM (Rec: 04/19/24 09:04 NM [id number]) Scapula Strength Scapula Manual Muscle Testing Right Elevation (C4) 4- Good- Adduction 3+ Fair+ Abduction 3+ Fair+ Depression 3+ Fair+ Comments lower trap most limited Left Elevation (C4) 4 Good Adduction 4 Good Abduction 4 Good Depression 4 Good Shoulder Strength Shoulder Manual Muscle Testing Right Flexion 4- Good- Abduction (C5) 4 Good External Rotation 4- Good- Internal Rotation 4- Good- Left Flexion 4 Good Abduction (C5) 4 Good External Rotation 4 Good Internal Rotation 4 Good Elbow/Forearm Strength Elbow and Forearm Manual Muscle Testing Right Flexion (C6) 4- Good- Extension (C7) 4- Good- Pronation 4 Good Supination 4 Good Left Flexion (C6) 4 Good Extension (C7) 4 Good Pronation 4 Good Supination 4 Good Wrist Strength Wrist Manual Muscle Testing Right Flexion (C7) 4- Good- Extension (C6) 4- Good- Left Flexion (C7) 4 Good Extension (C6) 4 Good Hand Hardware Supplies Sales Representative/Pinch Strength Hand Dominance Hand Dominance Left Hand Strength Right Hardware Supplies Sales Representative (lbs) 100 Left Hardware Supplies Sales Representative (lbs) 92 PT-OP-Q Treatments Start: 04/19/24 07:29 Freq: Status: Active Protocol: Document 05/04/24 10:47 NM (Rec: 05/04/24 11:34 NM [id number]) Therapeutic Exercises Prone Exercises TWY Side bilateral Resistance AROM Equipment Used mat on floor Reps/Minutes 15x2 Comments increased time needed for all exercises; less winging thoracic mobility Prone Exercise Name lat roll out from child pose with lat stretch Side bilateral Equipment Used foam roller Reps/Minutes 10x10 ea Comments tightness in rhomboids Other Exercises quadruped Other Exercise Name dolphin plank Side bilateral Reps/Minutes 5 Comments demos winging R side, less than before Manual Therapy Treatment Consent Patient gave verbal consent for manual Yes treatment Soft Tissue Mobilization R shoulder Body Location R shoulder, pec periscapular musculature, lat Mobilization Type Myofascial Release,Rolling, Sustained Pressure Intensity/Depth Moderate Body Position Sidelying Comments Trigger points at suprapinatus , lat, rhomboids. Performed with sidelying lengthening of lat and rolling Joint Mobilizations Ribs Joint 1st, 2nd, 3rd Direction caudal Grade III Body Position Sidelying Reps/Duration 10 ea Comments Monitored for pain. Cueing for breathwork, improved depression with reps GH Joint glenohumeral joint mobs Direction Inferior/AP Grade IV Body Position Hooklying Reps/Duration 2x10 ea Comments Post glide performed with ER/ abd bias. Monitored for pain Scapular Joint Scapular mobilizations Direction add/dep, rotation Grade III Body Position Sidelying Reps/Duration 2x10 ea PT-OP-T Assessment and Plan Start: 04/19/24 07:29 Freq: Status: Active Protocol: Document 05/04/24 10:47 NM (Rec: 05/04/24 11:34 NM [id number]) Physical Therapy Assessment Goals Four Impairment quickdash 22.7% impairment Half-Way Goal (LTG) Pt will decrease quickdash to <15% impairment in order to demonstrate improved symptom management LTG Duration 12 weeks Three Impairment limitations in scapular, shoulder strength Short Term Goal (STG) Pt will improve R scapular strength to at least 4-/5 MMT globally for more efficient scapular position STG Duration 8 weeks Half-Way Goal (LTG) Pt will improve R scapular and shoulder strength to at least 4/5 MMT globally for more efficient lifting mechanics LTG Duration 12 weeks Two Impairment R shoulder ROM limited Half-Way Goal (LTG) Pt will increase R shoulder flexion ROM to at least 160 deg and apley ER to at least C3 in order to improve ability to reach and perform grooming ADLs 05/01/2024 AROM right shoulder flexion 150 deg end of session LTG Duration 12 weeks One Impairment not performing HEP Half-Way Goal (LTG) Pt will be IND with HEP at least 3x/wk in order to maximize progression with PT and for maintenance upon discharge from PT 04/26/24: scapular retraction 05/01/2024 pec stretch and alt UE flex on foam roller, and serratus punch in hooklying to HEP LTG Duration 12 weeks Assessment Summary Assessment Demos less winging with prone periscapular strengthening, minimal cues needed for correct execution. Scapular Y lift off most challenging and more likely to exhibit winging . Increased time needed for all exercises. Continues to demo lat tightness that limits R shoulder flexion. Pt has 150 deg R flex at start of session, 155 deg and less winging at end of session. Pt would benefit from further skilled PT for progressive serratus anterior and scapular strengthening in order to improve symptom management with reaching and lifting, in addition for pt to be able to perform work-related tasks. Physical Therapy Plan Frequency and Duration Frequency of Treatment 1-2x/wk Duration of treatment (weeks) 12 Plan of Care Start Date 04/19/24 Plan of Care End Date 07/13/24 Therapeutic Interventions Therapeutic Interventions Gait Training,Home Exercise Program,Joint Mobilizations, Manual Therapy,Neuromuscular Re-education,Orthotic/ Prosthetic Management,Patient/ Caregiver Education,Self-Care/ Home Management,Sensory Integration,Soft Tissue Mobilization,Taping, Therapeutic Activities, Therapeutic Exercises Modalities Cold Pack/Ice Massage,Electric Stimulation,Hot Packs, Ultrasound Next Visit Focus/Plan Next Note Type Treatment Note Next Visit Plan Condense HEP if needed. Trial sidelying trio w/ emphasis on scap facilitation, closed chain RTC (quad/plank w/ clock ) activation. Dolphin plank, serratus slider 1/2 kneel on wall and in plank/quad on foam, foam roller supine press plus, inverted DB carry, cont with wall slides on foam roller and press up plus Manual: scapular mob and positioning,rib and GHJ mob as needed, STM Can trial cupping to lat/periscaps, Trigger Point treatment ok if pt consents
--- NOTE | 2024-05-14 10:44 | PT.OTN ---
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 He thinks that it occurred after sleeping weird, after multiple days of changing sleep position without success . About 1 month later, lost mobility in thumb; currently in PT for gripping/thumb stregth. Several months later, had same on L side; same 1 month later. Has seen neurologist at [facility] in [facility]. Four months ago, pt reports that he lost the ability to keep his scapula with forward reaching or overhead. No neck pain, no numbness. L sided is completely resolved. No clicking, popping of scapula. Reports uncomfortable, states with or without weights. Not affecting sleep. 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 Patient reports the exercises are going good, is mixing in a fair amount of yoga. Patient reports he modified the HEP as some of the exercises seemed similar. PT-OP-E Functional Tests Start: 04/19/24 07:29 Freq: Status: Active Protocol: Document 04/19/24 08:17 NM (Rec: 04/19/24 09:04 NM [id number]) Functional Tests Apley's Scratch Test Action 1- Left scap spine Action 1- Right AC J Action 2- Left T6 Action 2- Right occiput Action 3- Left T7 Action 3- Right T10 PT-OP-F Manual Assessment Start: 04/19/24 07:29 Freq: Status: Active Protocol: Document 04/19/24 08:17 NM (Rec: 04/19/24 09:04 NM [id number]) Manual Assessments Soft Tissue Assessment Soft Tissue Mobility Assessment Hypertrophy and elevation of R trap and cervical paraspinals . No atrophy noted at rotator cuff. Lat tightnes Joint Mobility Assessment Joint Mobility Assessment Quicker scapulohumeral rhythm R > L, limited thoracic mobility marnie R side, rib elevation marnie 1st rib. Limited posterior and inferior R GH joint mobility R scapula- 9 cm medial border to spine, 12 cm inf to spine L scapula - 8 cm medial border to spine, 9 cm inf to spine PT-OP-G Mobility & Gait Start: 04/19/24 07:29 Freq: Status: Active Protocol: Document 04/19/24 08:17 NM (Rec: 04/19/24 10:57 NM [id number]) OP Gait Assessment Gait Gait Assistance Required: Independent Distance (Feet) 150 Comments Gait Comments Limited trunk rotation PT-OP-H Neuro Start: 04/19/24 07:29 Freq: Status: Active Protocol: Document 04/19/24 08:17 NM (Rec: 04/19/24 10:57 NM [id number]) Sensation Evaluation Comments Summary Comments BUE equally intact to light touch sensation V1-V3 intact equally to light touch sensation Deep Tendon Reflex & Clonus Assessment Deep Tendon Reflex Right Achilles Deep Tendon Reflex 1+ Diminished Left Achilles Deep Tendon Reflex 2+ Normal Bilateral Patellar Deep Tendon Reflex 1+ Diminished Bilateral Brachioradialis Deep Tendon Reflex 1+ Diminished Bilateral Tricep Deep Tendon Reflex 1+ Diminished Bilateral Bicep Deep Tendon Reflex 1+ Diminished PT-OP-J Posture/Palpation/Skin Start: 04/19/24 07:29 Freq: Status: Active Protocol: Document 04/19/24 08:17 NM (Rec: 04/19/24 10:57 NM [id number]) Posture Evaluation Position Standing Head/C-Spine Posture C-Spine Flattened L-Spine Posture Increased Lordosis Shoulder Posture (L) Rounded,(R) Rounded Scapula Posture (L) Neutral,(R) Elevated,(R) Winged,(R) Tipped Arm Posture (L) Internally Rotated,(R) Internally Rotated Pelvis Posture Anteriorly Tilted Weight Distribution Balanced Hip Posture (R) Internally Rotated Palpation Assessment Location R shoulder Palpation Findings Soft Tissue Tightness, Tenderness Palpation Details Increased soft tissue restrictions on R cervical spine and periscapulars. R shoulder/scapula elevation, upper trap more prominent. Increaed tone No tenderness to palpation along R scapula, rotator cuff, trapezius Winging evident PT-OP-K Range of Motion Start: 04/19/24 07:29 Freq: Status: Active Protocol: Document 04/19/24 08:17 NM (Rec: 04/19/24 09:04 NM [id number]) Cervical Spine Range of Motion Cervical Spine Active Degrees Flexion 40 Extension 60 Rotation Left 75 Rotation Right 82 Lateral Flexion Left 45 Lateral Flexion Right 50 Comments Demos slight R tilt in neutral Shoulder Goniometric Range of Motion Shoulder Right Flexion 140 Abduction 150 External Rotation at 90 degrees 40 Abduction Comments 90 ER w comp at trunk Left Flexion 170 Abduction 180 External Rotation at 90 degrees 90 Abduction PT-OP-L Special Tests Start: 04/19/24 07:29 Freq: Status: Active Protocol: Document 04/19/24 08:17 NM (Rec: 04/19/24 09:04 NM [id number]) Special Tests Cervical Spine Special Tests Distraction Test Results - Spurling's Test Test Results - Shoulder Special Tests Lift off Test Results - Comments uncomfortable based on scapular angle Empty Can Test Results + Comments weakness but not pain IR > ER PT-OP-M Strength Start: 04/19/24 07:29 Freq: Status: Active Protocol: Document 04/19/24 08:17 NM (Rec: 04/19/24 09:04 NM [id number]) Scapula Strength Scapula Manual Muscle Testing Right Elevation (C4) 4- Good- Adduction 3+ Fair+ Abduction 3+ Fair+ Depression 3+ Fair+ Comments lower trap most limited Left Elevation (C4) 4 Good Adduction 4 Good Abduction 4 Good Depression 4 Good Shoulder Strength Shoulder Manual Muscle Testing Right Flexion 4- Good- Abduction (C5) 4 Good External Rotation 4- Good- Internal Rotation 4- Good- Left Flexion 4 Good Abduction (C5) 4 Good External Rotation 4 Good Internal Rotation 4 Good Elbow/Forearm Strength Elbow and Forearm Manual Muscle Testing Right Flexion (C6) 4- Good- Extension (C7) 4- Good- Pronation 4 Good Supination 4 Good Left Flexion (C6) 4 Good Extension (C7) 4 Good Pronation 4 Good Supination 4 Good Wrist Strength Wrist Manual Muscle Testing Right Flexion (C7) 4- Good- Extension (C6) 4- Good- Left Flexion (C7) 4 Good Extension (C6) 4 Good Hand Spoon Maker/Pinch Strength Hand Dominance Hand Dominance Left Hand Strength Right Spoon Maker (lbs) 100 Left Spoon Maker (lbs) 92 PT-OP-Q Treatments Start: 04/19/24 07:29 Freq: Status: Active Protocol: Document 05/14/24 08:11 AB (Rec: 05/14/24 10:44 AB [id number]) Therapeutic Exercises Supine Exercises foam roller Supine Exercise Name 1. pec stretch 2. alternating UE flexion Side bilateral Equipment Used HEP Reps/Minutes 1. 2 min 2. X 10 Comments Verbal cues for positioning, direct of mvt and breathing from diaphragm serratus punch Supine Exercise Name HEP Side bilateral Resistance 2 lb Comments verbal cues Standing Exercises scapular depression Standing Exercise Name HEP Side bilateral Resistance level 2 band Reps/Minutes X15 Comments verbal and visual cues scalene stretch Standing Exercise Name HEP Side right Reps/Minutes 60 sec Comments verbal cues Other Exercises quadruped Other Exercise Name dolphin plank Side bilateral Reps/Minutes 5 Comments Verbal cues Manual Therapy Treatment Soft Tissue Mobilization R shoulder Body Location B shoulder, pec periscapular musculature, lat, UT, levat scap Mobilization Type Instrument Assisted,Myofascial Release,Rolling,Sustained Pressure Intensity/Depth Moderate Body Position Sidelying Comments cupping at lat/serratus with AROM flexion in sidelying Joint Mobilizations Ribs Joint 1st, 2nd Direction caudal Grade III Body Position Sidelying Reps/Duration 10 ea GH Joint glenohumeral joint mobs B Direction Inferior/AP Grade IV Body Position Hooklying Reps/Duration 2x10 ea Scapular Joint Scapular mobilizations Direction add/dep, rotation Grade III Body Position Sidelying Reps/Duration 2x10 ea PT-OP-T Assessment and Plan Start: 04/19/24 07:29 Freq: Status: Active Protocol: Document 05/14/24 08:11 AB (Rec: 05/14/24 10:44 AB [id number]) Physical Therapy Assessment Goals Four Impairment quickdash 22.7% impairment Java Development Team Lead Goal (LTG) Pt will decrease quickdash to <15% impairment in order to demonstrate improved symptom management LTG Duration 12 weeks Three Impairment limitations in scapular, shoulder strength Short Term Goal (STG) Pt will improve R scapular strength to at least 4-/5 MMT globally for more efficient scapular position STG Duration 8 weeks Intermediate Goal (LTG) Pt will improve R scapular and shoulder strength to at least 4/5 MMT globally for more efficient lifting mechanics LTG Duration 12 weeks Two Impairment R shoulder ROM limited Intermediate Goal (LTG) Pt will increase R shoulder flexion ROM to at least 160 deg and apley ER to at least C3 in order to improve ability to reach and perform grooming ADLs 05/01/2024 AROM right shoulder flexion 150 deg end of session LTG Duration 12 weeks One Impairment not performing HEP Java Development Team Lead Goal (LTG) Pt will be IND with HEP at least 3x/wk in order to maximize progression with PT and for maintenance upon discharge from PT 04/26/24: scapular retraction 05/01/2024 pec stretch and alt UE flex on foam roller, and serratus punch in hooklying to HEP LTG Duration 12 weeks Assessment Summary Assessment Noted less winging with Dolphin ex than first session with this therapist performing AROM shoulder flexion in standing right shoulder. Physical Therapy Plan Frequency and Duration Frequency of Treatment 1-2x/wk Duration of treatment (weeks) 12 Plan of Care Start Date 04/19/24 Plan of Care End Date 07/13/24 Next Visit Focus/Plan Next Note Type Treatment Note Next Visit Plan Condense HEP if needed ( discussed discontinue scap squeeze). Trial sidelying trio w/ emphasis on scap facilitation, closed chain RTC (quad/plank w/ clock) activation. Dolphin plank, serratus slider 1/2 kneel on wall and in plank/quad on foam, foam roller supine press plus, inverted DB carry, cont with wall slides on foam roller and press up plus Manual: scapular mob and positioning,rib and GHJ mob as needed, STM Can trial cupping to lat/periscaps, Trigger Point treatment ok if pt consents
--- NOTE | 2024-05-25 09:13 | PT.OTN ---
Current Diagnoses Stiffness of right shoulder, not elsewhere classified (05/25/24) Cervicalgia (05/25/24) Other specified acquired deformities of musculoskeletal system (05/25/24) Weakness (05/25/24) Physical Therapy Treatment Note PT-OP-A Visit Information Start: 04/19/24 07:29 Freq: Status: Active Protocol: Document 05/25/24 07:28 NM (Rec: 05/25/24 08:16 NM [id number]) Out-Patient Physical Therapy Visit Information Visit Information Visit Type Progress Note Visit Start Time 07:30 Visit Stop Time 08:14 Visit Number 6 Evaluation Information Evaluation Date 04/19/24 PT-OP-B Current Condition Start: 04/19/24 07:29 Freq: Status: Active Protocol: Document 04/19/24 08:17 NM (Rec: 04/19/24 09:04 NM [id number]) Current Condition History of Current Condition Onset Date 1 year ago Current Complaints scapular winging History of Current Condition Pt reports that 1 year ago, he reports that numbness in R shoulder/scapula. He thinks that it occurred after sleeping weird, after multiple days of changing sleep position without success . About 1 month later, lost mobility in thumb; currently in PT for gripping/thumb stregth. Several months later, had same on L side; same 1 month later. Has seen neurologist at [facility] in [facility]. Four months ago, pt reports that he lost the ability to keep his scapula with forward reaching or overhead. No neck pain, no numbness. L sided is completely resolved. No clicking, popping of scapula. Reports uncomfortable, states with or without weights. Not affecting sleep. 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 States has been busy so not been doing HEP as consistently; has been doing yoga. States that winging is still not improved. States can perform all of work related duties. Still feels most limited by push ups and pull ups. Wants to condense HEP/ look at for alignment. PT-OP-E Functional Tests Start: 04/19/24 07:29 Freq: Status: Active Protocol: Document 04/19/24 08:17 NM (Rec: 04/19/24 09:04 NM [id number]) Functional Tests Apley's Scratch Test Action 1- Left scap spine Action 1- Right AC J Action 2- Left T6 Action 2- Right occiput Action 3- Left T7 Action 3- Right T10 PT-OP-F Manual Assessment Start: 04/19/24 07:29 Freq: Status: Active Protocol: Document 04/19/24 08:17 NM (Rec: 04/19/24 09:04 NM [id number]) Manual Assessments Soft Tissue Assessment Soft Tissue Mobility Assessment Hypertrophy and elevation of R trap and cervical paraspinals . No atrophy noted at rotator cuff. Lat tightnes Joint Mobility Assessment Joint Mobility Assessment Quicker scapulohumeral rhythm R > L, limited thoracic mobility marnie R side, rib elevation marnie 1st rib. Limited posterior and inferior R GH joint mobility R scapula- 9 cm medial border to spine, 12 cm inf to spine L scapula - 8 cm medial border to spine, 9 cm inf to spine PT-OP-G Mobility & Gait Start: 04/19/24 07:29 Freq: Status: Active Protocol: Document 04/19/24 08:17 NM (Rec: 04/19/24 10:57 NM [id number]) OP Gait Assessment Gait Gait Assistance Required: Independent Distance (Feet) 150 Comments Gait Comments Limited trunk rotation PT-OP-H Neuro Start: 04/19/24 07:29 Freq: Status: Active Protocol: Document 04/19/24 08:17 NM (Rec: 04/19/24 10:57 NM [id number]) Sensation Evaluation Comments Summary Comments BUE equally intact to light touch sensation V1-V3 intact equally to light touch sensation Deep Tendon Reflex & Clonus Assessment Deep Tendon Reflex Right Achilles Deep Tendon Reflex 1+ Diminished Left Achilles Deep Tendon Reflex 2+ Normal Bilateral Patellar Deep Tendon Reflex 1+ Diminished Bilateral Brachioradialis Deep Tendon Reflex 1+ Diminished Bilateral Tricep Deep Tendon Reflex 1+ Diminished Bilateral Bicep Deep Tendon Reflex 1+ Diminished PT-OP-J Posture/Palpation/Skin Start: 04/19/24 07:29 Freq: Status: Active Protocol: Document 04/19/24 08:17 NM (Rec: 04/19/24 10:57 NM [id number]) Posture Evaluation Position Standing Head/C-Spine Posture C-Spine Flattened L-Spine Posture Increased Lordosis Shoulder Posture (L) Rounded,(R) Rounded Scapula Posture (L) Neutral,(R) Elevated,(R) Winged,(R) Tipped Arm Posture (L) Internally Rotated,(R) Internally Rotated Pelvis Posture Anteriorly Tilted Weight Distribution Balanced Hip Posture (R) Internally Rotated Palpation Assessment Location R shoulder Palpation Findings Soft Tissue Tightness, Tenderness Palpation Details Increased soft tissue restrictions on R cervical spine and periscapulars. R shoulder/scapula elevation, upper trap more prominent. Increaed tone No tenderness to palpation along R scapula, rotator cuff, trapezius Winging evident PT-OP-K Range of Motion Start: 04/19/24 07:29 Freq: Status: Active Protocol: Document 05/25/24 07:28 NM (Rec: 05/25/24 08:16 NM [id number]) Shoulder Goniometric Range of Motion Shoulder Right Flexion 152 Abduction 155 External Rotation at 90 degrees 65 Abduction Comments 90 ER w comp at trunk Left Flexion 170 Abduction 180 External Rotation at 90 degrees 90 Abduction PT-OP-L Special Tests Start: 04/19/24 07:29 Freq: Status: Active Protocol: Document 04/19/24 08:17 NM (Rec: 04/19/24 09:04 NM [id number]) Special Tests Cervical Spine Special Tests Distraction Test Results - Spurling's Test Test Results - Shoulder Special Tests Lift off Test Results - Comments uncomfortable based on scapular angle Empty Can Test Results + Comments weakness but not pain IR > ER PT-OP-M Strength Start: 04/19/24 07:29 Freq: Status: Active Protocol: Document 05/25/24 07:28 NM (Rec: 05/25/24 08:16 NM [id number]) Scapula Strength Scapula Manual Muscle Testing Right Elevation (C4) 4- Good- Adduction 4- Good- Abduction 4- Good- Depression 4- Good- Comments lower trap most limited Left Elevation (C4) 4 Good Adduction 4 Good Abduction 4 Good Depression 4 Good Shoulder Strength Shoulder Manual Muscle Testing Right Flexion 4 Good Abduction (C5) 4 Good External Rotation 4 Good Internal Rotation 4 Good Left Flexion 4 Good Abduction (C5) 4 Good External Rotation 4 Good Internal Rotation 4 Good PT-OP-Q Treatments Start: 04/19/24 07:29 Freq: Status: Active Protocol: Document 05/25/24 07:28 NM (Rec: 05/25/24 08:16 NM [id number]) Therapeutic Exercises Prone Exercises closed chain serratus Prone Exercise Name 1. push up plus, 2. clock Side bilateral Reps/Minutes 1. 15, 2. 5 ea Comments cued form, less winging with closed chain TWY Prone Exercise Name HEP review Side bilateral Resistance AROM Equipment Used towel roll under head Reps/Minutes 5 ea Comments cued to maintain trunk on ground to avoid trunk ext comp , hand position Sidelying Exercises shoulder flexion Side right Equipment Used PT facilitate at scapula marnie w / elev/rot Reps/Minutes 15 Manual Therapy Treatment Consent Patient gave verbal consent for manual Yes treatment Soft Tissue Mobilization R shoulder Body Location post cuff, lat, rhomboids Mobilization Type Myofascial Release,Rolling, Sustained Pressure Intensity/Depth Moderate Body Position Sidelying Joint Mobilizations GH Joint R GHJ c/ mobility straps Direction AP, inf Grade IV Body Position Hooklying Reps/Duration 3x10 Comments performed with ER/IR bias, followed with functional movement Scapular Joint Scapular mobilizations Direction add/dep, rotation Grade III Body Position Sidelying Reps/Duration 2x10 ea PT-OP-T Assessment and Plan Start: 04/19/24 07:29 Freq: Status: Active Protocol: Document 05/25/24 07:28 NM (Rec: 05/25/24 08:16 NM [id number]) Physical Therapy Assessment Goals Four Impairment quickdash 22.7% impairment Halfway Goal (LTG) Pt will decrease quickdash to <15% impairment in order to demonstrate improved symptom management 05/24/24: 20.4% impairment LTG Duration 12 weeks PROGRESSING Three Impairment limitations in scapular, shoulder strength Short Term Goal (STG) Pt will improve R scapular strength to at least 4-/5 MMT globally for more efficient scapular position 05/25/24: 4-/5 for all STG Duration 8 weeks MET Fitter Type Bar And Segment Goal (LTG) Pt will improve R scapular and shoulder strength to at least 4/5 MMT globally for more efficient lifting mechanics LTG Duration 12 weeks Two Impairment R shoulder ROM limited Fitter Type Bar And Segment Goal (LTG) Pt will increase R shoulder flexion ROM to at least 160 deg and apley ER to at least C3 in order to improve ability to reach and perform grooming ADLs 05/01/2024 AROM right shoulder flexion 150 deg end of session 05/25/24: 152 deg flex end of session LTG Duration 12 weeks PROGRESSING 05/25 One Impairment not performing HEP Halfway Goal (LTG) Pt will be IND with HEP at least 3x/wk in order to maximize progression with PT and for maintenance upon discharge from PT 04/26/24: scapular retraction 05/01/2024 pec stretch and alt UE flex on foam roller, and serratus punch in hooklying to HEP 05/25/24: compliant with HEP LTG Duration 12 weeks PROGRESSING Progress Towards Goals Progress Towards Goals Progressing Toward Goals Assessment Summary Assessment Pt continues to progress with ther-ex. R shoulder flexion at end range limited by decreased humeral mobility at GHJ, continues to demo compensation with trunk extension and lat engagement. Initiated sidelying R shoulder flexion with PT facilitating at scapula for more efficient elevation/rotation. Less scapular winging demonstrated today with closed chainexercises on floor. Physical Therapy Plan Frequency and Duration Frequency of Treatment 1-2x/wk Duration of treatment (weeks) 12 Plan of Care Start Date 04/19/24 Plan of Care End Date 07/13/24 Therapeutic Interventions Therapeutic Interventions Gait Training,Home Exercise Program,Joint Mobilizations, Manual Therapy,Neuromuscular Re-education,Orthotic/ Prosthetic Management,Patient/ Caregiver Education,Self-Care/ Home Management,Sensory Integration,Soft Tissue Mobilization,Taping, Therapeutic Activities, Therapeutic Exercises Modalities Cold Pack/Ice Massage,Electric Stimulation,Hot Packs, Ultrasound Next Visit Focus/Plan Next Note Type Treatment Note Next Visit Plan Plan to dc 2 sessions. Limit lat comp. sidelying trio, trial weighted TWY on ball, slider plank Manual: scapular mob and positioning,rib and GHJ mob as needed, STM Can trial cupping to lat/periscaps, Trigger Point treatment ok if pt consents
--- NOTE | 2024-05-31 15:26 | PT.OTN ---
Current Diagnoses Stiffness of right shoulder, not elsewhere classified (05/31/24) Cervicalgia (05/31/24) Other specified acquired deformities of musculoskeletal system (05/31/24) Weakness (05/31/24) Physical Therapy Treatment Note PT-OP-A Visit Information Start: 04/19/24 07:29 Freq: Status: Active Protocol: Document 05/31/24 14:36 NM (Rec: 05/31/24 15:26 NM [id number]) Out-Patient Physical Therapy Visit Information Visit Information Visit Type Treatment Note Visit Start Time 14:37 Visit Stop Time 15:19 Visit Number 7 PT-OP-B Current Condition Start: 04/19/24 07:29 Freq: Status: Active Protocol: Document 04/19/24 08:17 NM (Rec: 04/19/24 09:04 NM [id number]) Current Condition History of Current Condition Onset Date 1 year ago Current Complaints scapular winging History of Current Condition Pt reports that 1 year ago, he reports that numbness in R shoulder/scapula. He thinks that it occurred after sleeping weird, after multiple days of changing sleep position without success . About 1 month later, lost mobility in thumb; currently in PT for gripping/thumb stregth. Several months later, had same on L side; same 1 month later. Has seen neurologist at [facility] in [facility]. Four months ago, pt reports that he lost the ability to keep his scapula with forward reaching or overhead. No neck pain, no numbness. L sided is completely resolved. No clicking, popping of scapula. Reports uncomfortable, states with or without weights. Not affecting sleep. 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 Brought HEP. Neurologist appt went well, has more mobility and strength in thumb; states that shoulder still improving. Pt reports altering exercises based on home equipment PT-OP-E Functional Tests Start: 04/19/24 07:29 Freq: Status: Active Protocol: Document 04/19/24 08:17 NM (Rec: 04/19/24 09:04 NM [id number]) Functional Tests Apley's Scratch Test Action 1- Left scap spine Action 1- Right AC J Action 2- Left T6 Action 2- Right occiput Action 3- Left T7 Action 3- Right T10 PT-OP-F Manual Assessment Start: 04/19/24 07:29 Freq: Status: Active Protocol: Document 04/19/24 08:17 NM (Rec: 04/19/24 09:04 NM [id number]) Manual Assessments Soft Tissue Assessment Soft Tissue Mobility Assessment Hypertrophy and elevation of R trap and cervical paraspinals . No atrophy noted at rotator cuff. Lat tightnes Joint Mobility Assessment Joint Mobility Assessment Quicker scapulohumeral rhythm R > L, limited thoracic mobility marnie R side, rib elevation marnie 1st rib. Limited posterior and inferior R GH joint mobility R scapula- 9 cm medial border to spine, 12 cm inf to spine L scapula - 8 cm medial border to spine, 9 cm inf to spine PT-OP-G Mobility & Gait Start: 04/19/24 07:29 Freq: Status: Active Protocol: Document 04/19/24 08:17 NM (Rec: 04/19/24 10:57 NM [id number]) OP Gait Assessment Gait Gait Assistance Required: Independent Distance (Feet) 150 Comments Gait Comments Limited trunk rotation PT-OP-H Neuro Start: 04/19/24 07:29 Freq: Status: Active Protocol: Document 04/19/24 08:17 NM (Rec: 04/19/24 10:57 NM [id number]) Sensation Evaluation Comments Summary Comments BUE equally intact to light touch sensation V1-V3 intact equally to light touch sensation Deep Tendon Reflex & Clonus Assessment Deep Tendon Reflex Right Achilles Deep Tendon Reflex 1+ Diminished Left Achilles Deep Tendon Reflex 2+ Normal Bilateral Patellar Deep Tendon Reflex 1+ Diminished Bilateral Brachioradialis Deep Tendon Reflex 1+ Diminished Bilateral Tricep Deep Tendon Reflex 1+ Diminished Bilateral Bicep Deep Tendon Reflex 1+ Diminished PT-OP-J Posture/Palpation/Skin Start: 04/19/24 07:29 Freq: Status: Active Protocol: Document 04/19/24 08:17 NM (Rec: 04/19/24 10:57 NM [id number]) Posture Evaluation Position Standing Head/C-Spine Posture C-Spine Flattened L-Spine Posture Increased Lordosis Shoulder Posture (L) Rounded,(R) Rounded Scapula Posture (L) Neutral,(R) Elevated,(R) Winged,(R) Tipped Arm Posture (L) Internally Rotated,(R) Internally Rotated Pelvis Posture Anteriorly Tilted Weight Distribution Balanced Hip Posture (R) Internally Rotated Palpation Assessment Location R shoulder Palpation Findings Soft Tissue Tightness, Tenderness Palpation Details Increased soft tissue restrictions on R cervical spine and periscapulars. R shoulder/scapula elevation, upper trap more prominent. Increaed tone No tenderness to palpation along R scapula, rotator cuff, trapezius Winging evident PT-OP-K Range of Motion Start: 04/19/24 07:29 Freq: Status: Active Protocol: Document 05/25/24 07:28 NM (Rec: 05/25/24 08:16 NM [id number]) Shoulder Goniometric Range of Motion Shoulder Right Flexion 152 Abduction 155 External Rotation at 90 degrees 65 Abduction Comments 90 ER w comp at trunk Left Flexion 170 Abduction 180 External Rotation at 90 degrees 90 Abduction PT-OP-L Special Tests Start: 04/19/24 07:29 Freq: Status: Active Protocol: Document 04/19/24 08:17 NM (Rec: 04/19/24 09:04 NM [id number]) Special Tests Cervical Spine Special Tests Distraction Test Results - Spurling's Test Test Results - Shoulder Special Tests Lift off Test Results - Comments uncomfortable based on scapular angle Empty Can Test Results + Comments weakness but not pain IR > ER PT-OP-M Strength Start: 04/19/24 07:29 Freq: Status: Active Protocol: Document 05/25/24 07:28 NM (Rec: 05/25/24 08:16 NM [id number]) Scapula Strength Scapula Manual Muscle Testing Right Elevation (C4) 4- Good- Adduction 4- Good- Abduction 4- Good- Depression 4- Good- Comments lower trap most limited Left Elevation (C4) 4 Good Adduction 4 Good Abduction 4 Good Depression 4 Good Shoulder Strength Shoulder Manual Muscle Testing Right Flexion 4 Good Abduction (C5) 4 Good External Rotation 4 Good Internal Rotation 4 Good Left Flexion 4 Good Abduction (C5) 4 Good External Rotation 4 Good Internal Rotation 4 Good PT-OP-Q Treatments Start: 04/19/24 07:29 Freq: Status: Active Protocol: Document 05/31/24 14:36 NM (Rec: 05/31/24 15:26 NM [id number]) Therapeutic Exercises Supine Exercises foam roller Supine Exercise Name serratus press Side bilateral Resistance 5# db ea hand Reps/Minutes 20 Prone Exercises closed chain serratus Prone Exercise Name 1. scapular montserrat taps (mod plank), 2. slider plank (on elbows) Side bilateral Reps/Minutes 1. 15, 2. 8 Comments less scap winging even w/ reps , still present TWY Prone Exercise Name HEP review: T, W, Y, prone Row + ER Side bilateral Resistance 1# db > 2# db ea hand Equipment Used 65 cm Reps/Minutes 10 ea- edu can use 1-2# wt for HEP Comments maintains neutral spine; prm cues maintain ER for Y, less wing Standing Exercises wall slides Standing Exercise Name 1. w/ foam roller, 2. w/o foam roller Side bilateral Resistance 2. level 1 band > no band Reps/Minutes 8 ea Comments mod cues for //arms, no LS hyperext, core brace Manual Therapy Treatment Consent Patient gave verbal consent for manual Yes treatment Soft Tissue Mobilization R shoulder Body Location post cuff, lat, rhomboids Mobilization Type Myofascial Release,Rolling, Sustained Pressure Intensity/Depth Moderate Body Position Sidelying Joint Mobilizations Scapular Joint Scapular mobilizations Direction add/dep, rotation Grade III Body Position Sidelying Reps/Duration 15 ea Comments MWM w/ abd and flex. Demos clicking of scapula along ribs as lowering arm. less scapular winging PT-OP-T Assessment and Plan Start: 04/19/24 07:29 Freq: Status: Active Protocol: Document 05/31/24 14:36 NM (Rec: 05/31/24 15:26 NM [id number]) Physical Therapy Assessment Goals Four Impairment quickdash 22.7% impairment Adolescent Medicine Specialist Goal (LTG) Pt will decrease quickdash to <15% impairment in order to demonstrate improved symptom management 05/24/24: 20.4% impairment LTG Duration 12 weeks PROGRESSING Three Impairment limitations in scapular, shoulder strength Short Term Goal (STG) Pt will improve R scapular strength to at least 4-/5 MMT globally for more efficient scapular position 05/25/24: 4-/5 for all STG Duration 8 weeks MET Adolescent Medicine Specialist Goal (LTG) Pt will improve R scapular and shoulder strength to at least 4/5 MMT globally for more efficient lifting mechanics LTG Duration 12 weeks Two Impairment R shoulder ROM limited Retirement Goal (LTG) Pt will increase R shoulder flexion ROM to at least 160 deg and apley ER to at least C3 in order to improve ability to reach and perform grooming ADLs 05/01/2024 AROM right shoulder flexion 150 deg end of session 05/25/24: 152 deg flex end of session LTG Duration 12 weeks PROGRESSING 05/25 One Impairment not performing HEP Adolescent Medicine Specialist Goal (LTG) Pt will be IND with HEP at least 3x/wk in order to maximize progression with PT and for maintenance upon discharge from PT 04/26/24: scapular retraction 05/01/2024 pec stretch and alt UE flex on foam roller, and serratus punch in hooklying to HEP 05/25/24: compliant with HEP LTG Duration 12 weeks PROGRESSING Assessment Summary Assessment Pt continues to respond well to therapeutic exercise especially closed chain serratus activation. Progressed resistance for all periscapular strengthening exercises. Although scapular winging still present, less evident with all exercises. Pt does have snapping at scapula with eccentric sidelying flexion and abduction, not painful but restricted due to decreased serratus anterior activation. Moderate cueing needed for correct execution/ form and to prevent compensations for all standing wall exercises. Pt and PT discussed discharge to maintenance next session as pt will be moving and will be going back to his job. Physical Therapy Plan Frequency and Duration Frequency of Treatment 1-2x/wk Duration of treatment (weeks) 12 Plan of Care Start Date 04/19/24 Plan of Care End Date 07/13/24 Therapeutic Interventions Therapeutic Interventions Gait Training,Home Exercise Program,Joint Mobilizations, Manual Therapy,Neuromuscular Re-education,Orthotic/ Prosthetic Management,Patient/ Caregiver Education,Self-Care/ Home Management,Sensory Integration,Soft Tissue Mobilization,Taping, Therapeutic Activities, Therapeutic Exercises Modalities Cold Pack/Ice Massage,Electric Stimulation,Hot Packs, Ultrasound Next Visit Focus/Plan Next Note Type Discharge Summary Next Visit Plan Plan to dc 1 sessions. review exercises marnie wall slides. Limit lat comp. sidelying trio , trial weighted TWY on ball, slider plank. Manual: scapular mob and positioning,rib and GHJ mob as needed, STM Can trial cupping to lat/periscaps, Trigger Point treatment ok if pt consents
--- NOTE | 2024-06-04 13:26 | PT.OTN ---
Current Diagnoses Stiffness of right shoulder, not elsewhere classified (06/04/24) Cervicalgia (06/04/24) Other specified acquired deformities of musculoskeletal system (06/04/24) Weakness (06/04/24) Physical Therapy Treatment Note PT-OP-A Visit Information Start: 04/19/24 07:29 Freq: Status: Active Protocol: Document 06/04/24 09:05 NM (Rec: 06/04/24 09:47 NM [id number]) Out-Patient Physical Therapy Visit Information Visit Information Visit Type Discharge Summary Visit Start Time 09:05 Visit Stop Time 09:44 Visit Number 8 PT-OP-B Current Condition Start: 04/19/24 07:29 Freq: Status: Active Protocol: Document 04/19/24 08:17 NM (Rec: 04/19/24 09:04 NM [id number]) Current Condition History of Current Condition Onset Date 1 year ago Current Complaints scapular winging History of Current Condition Pt reports that 1 year ago, he reports that numbness in R shoulder/scapula. He thinks that it occurred after sleeping weird, after multiple days of changing sleep position without success . About 1 month later, lost mobility in thumb; currently in PT for gripping/thumb stregth. Several months later, had same on L side; same 1 month later. Has seen neurologist at [facility] in [facility]. Four months ago, pt reports that he lost the ability to keep his scapula with forward reaching or overhead. No neck pain, no numbness. L sided is completely resolved. No clicking, popping of scapula. Reports uncomfortable, states with or without weights. Not affecting sleep. 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 Ready to be done with PT as will be moving and beginning work PT-OP-E Functional Tests Start: 04/19/24 07:29 Freq: Status: Active Protocol: Document 04/19/24 08:17 NM (Rec: 04/19/24 09:04 NM [id number]) Functional Tests Apley's Scratch Test Action 1- Left scap spine Action 1- Right AC J Action 2- Left T6 Action 2- Right occiput Action 3- Left T7 Action 3- Right T10 PT-OP-F Manual Assessment Start: 04/19/24 07:29 Freq: Status: Active Protocol: Document 04/19/24 08:17 NM (Rec: 04/19/24 09:04 NM [id number]) Manual Assessments Soft Tissue Assessment Soft Tissue Mobility Assessment Hypertrophy and elevation of R trap and cervical paraspinals . No atrophy noted at rotator cuff. Lat tightnes Joint Mobility Assessment Joint Mobility Assessment Quicker scapulohumeral rhythm R > L, limited thoracic mobility marnie R side, rib elevation marnie 1st rib. Limited posterior and inferior R GH joint mobility R scapula- 9 cm medial border to spine, 12 cm inf to spine L scapula - 8 cm medial border to spine, 9 cm inf to spine PT-OP-G Mobility & Gait Start: 04/19/24 07:29 Freq: Status: Active Protocol: Document 04/19/24 08:17 NM (Rec: 04/19/24 10:57 NM [id number]) OP Gait Assessment Gait Gait Assistance Required: Independent Distance (Feet) 150 Comments Gait Comments Limited trunk rotation PT-OP-H Neuro Start: 04/19/24 07:29 Freq: Status: Active Protocol: Document 04/19/24 08:17 NM (Rec: 04/19/24 10:57 NM [id number]) Sensation Evaluation Comments Summary Comments BUE equally intact to light touch sensation V1-V3 intact equally to light touch sensation Deep Tendon Reflex & Clonus Assessment Deep Tendon Reflex Right Achilles Deep Tendon Reflex 1+ Diminished Left Achilles Deep Tendon Reflex 2+ Normal Bilateral Patellar Deep Tendon Reflex 1+ Diminished Bilateral Brachioradialis Deep Tendon Reflex 1+ Diminished Bilateral Tricep Deep Tendon Reflex 1+ Diminished Bilateral Bicep Deep Tendon Reflex 1+ Diminished PT-OP-J Posture/Palpation/Skin Start: 04/19/24 07:29 Freq: Status: Active Protocol: Document 04/19/24 08:17 NM (Rec: 12/12/24 10:57 NM [id number]) Posture Evaluation Position Standing Head/C-Spine Posture C-Spine Flattened L-Spine Posture Increased Lordosis Shoulder Posture (L) Rounded,(R) Rounded Scapula Posture (L) Neutral,(R) Elevated,(R) Winged,(R) Tipped Arm Posture (L) Internally Rotated,(R) Internally Rotated Pelvis Posture Anteriorly Tilted Weight Distribution Balanced Hip Posture (R) Internally Rotated Palpation Assessment Location R shoulder Palpation Findings Soft Tissue Tightness, Tenderness Palpation Details Increased soft tissue restrictions on R cervical spine and periscapulars. R shoulder/scapula elevation, upper trap more prominent. Increaed tone No tenderness to palpation along R scapula, rotator cuff, trapezius Winging evident PT-OP-K Range of Motion Start: 04/19/24 07:29 Freq: Status: Active Protocol: Document 06/04/24 09:05 NM (Rec: 06/04/24 09:47 NM [id number]) Shoulder Goniometric Range of Motion Shoulder Right Flexion 155 Abduction 155 External Rotation at 90 degrees 65 Abduction Comments 90 ER w comp at trunk Left Flexion 170 Abduction 180 External Rotation at 90 degrees 90 Abduction PT-OP-L Special Tests Start: 04/19/24 07:29 Freq: Status: Active Protocol: Document 04/19/24 08:17 NM (Rec: 04/19/24 09:04 NM [id number]) Special Tests Cervical Spine Special Tests Distraction Test Results - Spurling's Test Test Results - Shoulder Special Tests Lift off Test Results - Comments uncomfortable based on scapular angle Empty Can Test Results + Comments weakness but not pain IR > ER PT-OP-M Strength Start: 04/19/24 07:29 Freq: Status: Active Protocol: Document 06/04/24 09:05 NM (Rec: 06/04/24 09:47 NM [id number]) Scapula Strength Scapula Manual Muscle Testing Right Elevation (C4) 4 Good Adduction 4- Good- Abduction 4- Good- Depression 4- Good- Comments lower trap most limited 06/04/24: 4/5 for elev, all others 4/5 Left Elevation (C4) 4 Good Adduction 4 Good Abduction 4 Good Depression 4 Good Shoulder Strength Shoulder Manual Muscle Testing Right Flexion 4 Good Abduction (C5) 4 Good External Rotation 4 Good Internal Rotation 4 Good Left Flexion 4 Good Abduction (C5) 4 Good External Rotation 4 Good Internal Rotation 4 Good PT-OP-Q Treatments Start: 04/19/24 07:29 Freq: Status: Active Protocol: Document 06/04/24 09:05 NM (Rec: 06/04/24 09:47 NM [id number]) Therapeutic Exercises Prone Exercises closed chain serratus Prone Exercise Name 1. slider plank, 2. rotator cuff clock quadruped Side bilateral Resistance level 1 band at wrist for clock Reps/Minutes 1. 10, 2. 3 Comments less winging; less winging on R w/ slider, UE ext today Standing Exercises pec stretch Standing Exercise Name 90/90 Side bilateral Equipment Used staggered stance Reps/Minutes 60 serratus ball slides Standing Exercise Name 1. posterior, 2. lateral, 3. forward Side right Equipment Used for serratus activation; small blue israeli ball Reps/Minutes 1. 5, 2. 10 Comments cued limit rib flare, LS ext; demos winging Wall angels Side bilateral Equipment Used dec post glide at R GHJ Reps/Minutes 5 Comments lacking end range shoulder mobility RUE; cued no lumbar ext wall slides Standing Exercise Name slides Side bilateral Resistance no band Reps/Minutes 8 w/ isometric press Comments cue to tuck ribs, limit lumbar ext; demos winging Manual Therapy Treatment Consent Patient gave verbal consent for manual Yes treatment Soft Tissue Mobilization R shoulder Body Location lat Mobilization Type Myofascial Release,Rolling, Sustained Pressure Intensity/Depth Moderate Body Position Sidelying Comments Increased time spent on lat mobility to decreased compensation with overhead motion Joint Mobilizations GH Joint R GHJ Direction AP Grade IV Body Position Hooklying Reps/Duration 4x30 ea bias from 0 deg abd to 90 deg abd Comments performed with ER/IR bias, followed with functional movement PT-OP-T Assessment and Plan Start: 04/19/24 07:29 Freq: Status: Active Protocol: Document 06/04/24 09:05 NM (Rec: 06/04/24 09:47 NM [id number]) Physical Therapy Assessment Goals Four Impairment quickdash 22.7% impairment Design Printer Balloon Goal (LTG) Pt will decrease quickdash to <15% impairment in order to demonstrate improved symptom management 05/24/24: 20.4% impairment 06/04/24: 24% LTG Duration 12 weeks NOT MET Three Impairment limitations in scapular, shoulder strength Short Term Goal (STG) Pt will improve R scapular strength to at least 4-/5 MMT globally for more efficient scapular position 05/25/24: 4-/5 for all STG Duration 8 weeks MET Design Printer Balloon Goal (LTG) Pt will improve R scapular and shoulder strength to at least 4/5 MMT globally for more efficient lifting mechanics 06/04/24: shoulder strength 4/5 , scapular strength 4- to 4/5 MMT LTG Duration 12 weeks PARTIALLY MET Two Impairment R shoulder ROM limited Chcf Goal (LTG) Pt will increase R shoulder flexion ROM to at least 160 deg and apley ER to at least C3 in order to improve ability to reach and perform grooming ADLs 05/01/2024 AROM right shoulder flexion 150 deg end of session 05/25/24: 152 deg flex end of session 06/04/24: ER apley T5; shoulder flexion 155 deg LTG Duration 12 weeks PARTIALLY MET 06/04 One Impairment not performing HEP [facility]cf Goal (LTG) Pt will be IND with HEP at least 3x/wk in order to maximize progression with PT and for maintenance upon discharge from PT 04/26/24: scapular retraction 05/01/2024 pec stretch and alt UE flex on foam roller, and serratus punch in hooklying to HEP 05/25/24: compliant with HEP 06/04/24: HEP review 05/31 session for maintenance, verbal review 06/04 session LTG Duration 12 weeks MET Progress Towards Goals Progress Towards Goals Progressing Toward Goals,Slow Progress due to Medical Issues ,Goals Met Assessment Summary Assessment Pt continues to demonstrate R scapular winging with exercises but reduced compared to at initial evaluation. Moderate cueing needed to limit trunk ext compensation to assist with RUE elevation. Restricted at R glenohumeral end range of motion, decreased ability to perform and maintain active posterior glide. Improved but not resolved with joint mobilizations. Physical Therapy Plan Frequency and Duration Frequency of Treatment 1-2x/wk Duration of treatment (weeks) 12 Plan of Care Start Date 04/19/24 Plan of Care End Date 07/13/24 Therapeutic Interventions Therapeutic Interventions Gait Training,Home Exercise Program,Joint Mobilizations, Manual Therapy,Neuromuscular Re-education,Orthotic/ Prosthetic Management,Patient/ Caregiver Education,Self-Care/ Home Management,Sensory Integration,Soft Tissue Mobilization,Taping, Therapeutic Activities, Therapeutic Exercises Modalities Cold Pack/Ice Massage,Electric Stimulation,Hot Packs, Ultrasound Discharge Physical Therapy Discharge Reasons Patient Request Discharge Comments Pt moving and will be going back to work; unable to continue with PT at this time. Has progressed toward goals, partially meeting goals. Compliant with HEP. Still demos R scapular winging but improved in strength. R shoulder AROM still limited compared to LUE. Pt would continue to benefit from skilled PT for shoulder ROM and strengthening to address impairments. Pt and PT discussed discharge and recommended more PT to continue to address R shoulder ROM/strength once settled in in new job/home. Next Visit Focus/Plan Next Note Type Discharge Summary Next Visit Plan discharge from PT
== END 2024-06-13 09:53 | disposition home or self-care (01) ==
LOC: PHYS 09:00
PROVIDERS: Family Provider Family Medicine; PCP Family Medicine; Referring Provider Internal Medicine; Visit Provider Internal Medicine
DX: M95.8 Other specified acquired deformities of musculoskeletal system (principal); M25.611 Stiffness of right shoulder, not elsewhere classified; R53.1 Weakness; M54.2 Cervicalgia
CPT/HCPCS: 97110; 97140; 97162